=== PATIENT | female | born 1940 | race Caucasian/White ===

== ENCOUNTER → 2016-03-23 | Outpatient (CLI) | payer BC ==
--- NOTE | 2016-03-23 09:31 | MA ---
Screening Digital Mammogram Clinical Indications: Routine screening. Other with breast cancer at age 60 Technique: Standard cephalocaudal and mediolateral oblique projections are obtained. This examinati on is processed by the [employer] computer aided detection system. Comparison: January 2015, January 2014, December 2012 and October 2011 Breast density: B; There are scattered fibroglandular densities. Findings: CAD was reviewed. . New small vague nodular density lower right breast, possibly in the sli ghtly inner breast on the CC view. The remainder of the right and left breast are stable. Impression: New nodule right breast. BI-RADS 0. Additional imaging required, right breast. Recommendation: Spot compression view and true lateral view. If persistent, proceed to ultrasound fo r further characterization and localization purposes.. [facility] will send a result letter to the patient. Negative mammography should not preclude additional workup of a clinically suspicious finding. The patient's information is entered into a reminder system with a target due date for her next mammo gram.
== END ==
LOC: BMCIMAGING 08:20
PROVIDERS: ATTEND Nurse Practitioner Adult Health
DX: Z12.31 Encounter for screening mammogram for malignant neoplasm of breast (principal); Z85.3 Personal history of malignant neoplasm of breast; N63 Unspecified lump in breast
CPT/HCPCS: G0202

== ENCOUNTER → 2016-04-01 | Outpatient (CLI) | payer BC | LOC: BMCIMAGING 13:13 | PROVIDERS: ATTEND Nurse Practitioner Adult Health | DX: N60.11 Diffuse cystic mastopathy of right breast (principal) | CPT/HCPCS: G0206 ==

== ENCOUNTER → 2016-06-24 | Outpatient (CLI) | payer BC | LOC: BMCIMAGING 10:06 | PROVIDERS: ATTEND Nurse Practitioner Adult Health | DX: Z13.820 Encounter for screening for osteoporosis (principal); M85.80 Other specified disorders of bone density and structure, unspecified site ==

== ENCOUNTER → 2017-02-08 | Outpatient (CLI) | payer BC | LOC: BMCIMAGING 08:35 | PROVIDERS: ATTEND Physical Medicine & Rehabilitation | DX: R60.0 Localized edema (principal) ==

== ENCOUNTER → 2017-03-01 | Outpatient (CLI) | payer BC | LOC: BMCIMAGING 10:52 | PROVIDERS: ATTEND Podiatrist Foot & Ankle Surgery | DX: M79.671 Pain in right foot (principal); M19.071 Primary osteoarthritis, right ankle and foot ==

== ENCOUNTER → 2017-08-30 | Outpatient (CLI) | payer BC | LOC: BMCIMAGING 07:33 | PROVIDERS: ATTEND Radiology Diagnostic Radiology | DX: Z12.31 Encounter for screening mammogram for malignant neoplasm of breast (principal); Z80.3 Family history of malignant neoplasm of breast ==

== ENCOUNTER 2017-09-05 09:29 | Emergency (ER) | payer BC ==
[2017-09-05] MEDS ORDERED: NS 1,000 ML IV ONE (09:41)
--- NOTE | 2017-09-05 09:41 | EDPHY ---
H & P Stated Complaint: no BM in 1 weeks-just started new pain med in same timeframe Time Seen by Provider: 09/05/17 09:38 HPI/ROS: HPI: This is a 77-year-old female who presents with Chief Complaint: no BM in 1 weeks-just started new pain med in same timeframe Location: Abdomen Quality: No bowel movement Duration: 1 week Signs and Symptoms: no fever, no nausea, no vomiting, no hematemesis, no blood in stool, no abdominal bloating, no diarrhea, no back pain, no urinary symptoms , no vaginal bleeding/discharge, no indigestion, no chest pain, no shortness of breath Timing: Slowly worsening Severity: [id number] Context: Patient is generally healthy only takes hormone replacement therapy but recently started taking and opiate for lower back pain approximately 7-10 days ago. She reports that her last bowel movement was 7-8 days ago. She believes that this is related to the pain medication. She reports that she has a decreased appetite and has not ate as much over the last 2 days. She has been taking MiraLax for the last 3-4 days daily without any relief. She is passing flatus. She denies any abdominal pain, nausea, vomiting, fever, urinary symptoms. She has no history of abdominal surgeries. Modifying Factors: MiraLax, no relief Comment: ROS: see HPI Constitutional: No fever, no chills, no weight loss Eyes: No blurred vision Respiratory: No shortness of breath, no cough Cardiovascular: No chest pain, no palpitations Gastrointestinal: No nausea, no vomiting, no diarrhea, no hematemesis, no blood in stool Genitourinary: No dysuria, no blood in urine Extremities: No myalgias, no edema Neurologic: No weakness, no numbness Skin: No rashes, no petechiae Hematologic: No bruising, no bleeding MEDICAL/SURGICAL/SOCIAL HISTORY: Medical history: Generally healthy. Low back pain. Surgical history: Denies Social history: Retired. Family history noncontributory. CONSTITUTIONAL: Well-appearing elderly white female, awake and alert, no obvious distress HEENT: Atraumatic and normocephalic, PERRL, EOMI. Nares patent; no rhinorrhea; no nasal mucosal edema. Tympanic membranes clear. Oropharynx clear, no exudate and moist pink mucosa. Airway patent. No lymphadenopathy. No meningismus. Cardiovascular: Normal S1/S2, regular rate, regular rhythm, without murmur rub or gallop. PULMONARY/CHEST: Symmetrical and nontender. Clear to auscultation bilaterally. Good air movement. No accessory muscle usage. ABDOMEN: Soft, nondistended, nontender, no rebound, no guarding, no peritoneal signs, no masses or organomegaly. No CVAT. Bowel sounds heard x4 quadrants. EXTREMITIES: 2/2 pulses, strength 5/5, no deformities, no clubbing, no cyanosis or edema. NEUROLOGICAL: no focal neuro deficits. GCS 15. SKIN: Warm and dry, no erythema. no rash. Good capillary refill. Source: Patient Exam Limitations: No limitations - Medical/Surgical History Hx Asthma: No Hx Chronic Respiratory Disease: No Hx Diabetes: No Hx Cardiac Disease: No Hx Renal Disease: No Hx Cirrhosis: No Hx Alcoholism: No Hx HIV/AIDS: No Hx Splenectomy or Spleen Trauma: No Other PMH: none reported - Social History Smoking Status: Never smoked Constitutional: Initial Vital Signs Temperature (C) 36.7 C 09/05/17 09:33 Heart Rate 78 09/05/17 09:33 Respiratory Rate 18 09/05/17 09:33 Blood Pressure 134/102 H 09/05/17 09:33 O2 Sat (%) 93 09/05/17 09:33 O2 Delivery Mode Room Air Allergies/Adverse Reactions: Sulfa (Sulfonamide Antibiotics) [Sulfa(Sulfonamide Antibiotics)] Allergy ( Verified 09/05/17 09:32) PRESERVATIVE IN MANY SHOTS Allergy (Uncoded 08/28/11 20:45) Home Medications: Medication Instructions Recorded Hormone Replacement Therapy 08/28/11 Magnesium Citrate [Magnesium 300 ml PO ONCE #1 bottle 09/05/17 Citrate 300 ml (*)] Opiod 09/05/17 Sod Phos,M-B/Na Phos,Di-Ba [Fleet 266 ml RC ONCE #1 enema 09/05/17 Enema] Medical Decision Making - Diagnostics Imaging Results: Imaging Impressions Abdomen X-Ray 09/05/17 09:42 Impression: 1. Mild constipation. 2. Progression of degenerative disk disease and facet hypertrophy mid to lower lumbar spine. ED Course/Re-evaluation: Vital signs is stable and patient's abdomen is soft and nontender and passing flatus. I suspect that this is constipation versus ileus. I do not believe that we need to order laboratory studies are CT abdomen and pelvis scan at this time. I will start with the KUB and start 1 L normal saline. Abdominal x-ray my read shows mild constipation, no signs of obstruction. Given a prescription for Fleet enema and magnesium citrate. Repeat abdominal exam remains soft and nontender. This patient was seen under the supervision of my secondary supervising physician. I evaluated care for this patient independently. Discussed this patient with Dr. Knox. Differential Diagnosis: Abdominal pain including but not limited to obstruction, ileus, constipation, fecal impaction. Departure - Departure Disposition: Home, Routine, Self-Care Clinical Impression: Constipation due to opioid therapy Condition: Good Instructions: Magnesium Citrate (By mouth), Constipation (ED), Fleet Enema (ED) Additional Instructions: Consume a minimum of 8-10 glasses of water or electrolyte fluid replacement drinks that include Gatorade, Powerade, Pedialyte. Eat a bland diet for the next 48 hours and then slowly advance as tolerated. Take magnesium citrate 150 mL and if no bowel movement in 4-6 hours take the other 150 mL. Use fleets enema upon arrival home. Return to the Emergency Room if symptoms do not resolve in the next 72 hours, you spike a fever > 102 F, or experience intractable abdominal pain/nausea/ vomiting. Referrals: Tracy Orona, [place] [Primary Care Provider] - 3-4 days, if not improved Prescriptions: Magnesium Citrate [Magnesium Citrate 300 ml (*)] 300 ml PO ONCE #1 bottle Sod Phos,M-B/Na Phos,Di-Ba [Fleet Enema] 266 ml RC ONCE #1 enema
[2017-09-05 10:43] VITALS: BP 142/84
== END 2017-09-05 10:43 | disposition home or self-care (01) ==
DX: K59.03 Drug induced constipation (principal); T40.2X5A Adverse effect of other opioids, initial encounter; E86.9 Volume depletion, unspecified

== ENCOUNTER → 2017-09-07 | Outpatient (CLI) | payer BC ==
[~2017-09-07] MED LIST: IOPAMIDOL (ISOVUE-300) 100 ML BTL ONE
== END ==
LOC: FIMAGING 10:18
PROVIDERS: ATTEND Nurse Practitioner Adult Health
DX: K59.00 Constipation, unspecified (principal); K62.89 Other specified diseases of anus and rectum
CPT/HCPCS: Q9967